=== PATIENT | female | born 1935 | race Hispanic/Latino ===

== ENCOUNTER 2019-11-29 18:56 | Inpatient (IN) | payer OTHER, MEDICARE ==
[~2019-11-29] VITALS: Ht 160 cm; Wt 50.2 kg
[2019-11-29] MEDS ORDERED: ACETAMINOPHEN 325 MG TAB ONE (19:49)
[2019-11-29] MEDS ORDERED: ONDANSETRON HCL 4 MG/2 ML VIAL ONE (19:49)
[2019-11-29] MEDS ORDERED: MORPHINE SULFATE 2 MG/ML 1ML SYG ONE (19:50)
[2019-11-29 19:52] LABS: BASOPHILS % (AUTO) 0.3 % (0.0-5.0); HEMATOCRIT 37.5 % (36-48); LYMPHOCYTES % (AUTO) 6.2 % (21.0-51.0); MEAN CORPUSCULAR HEMOGLOBIN 30.4 pg (27.0-33.0); MEAN CORPUSCULAR HGB CONC 35.5 g/dL (32.0-36.0); MEAN CORPUSCULAR VOLUME 85.8 fL (79-99); NEUTROPHILS % (AUTO) 80.2 % (40.0-77.0); PLATELET COUNT (AUTO) 312 K/uL (130-400); RED BLOOD CELL COUNT(AUTO) 4.37 MIL/uL (4.00-5.50); WHITE BLOOD COUNT (AUTO) 6.6 K/uL (4.8-10.8)
[2019-11-29 20:05] LABS: INR 1.02 (0.85-1.15); PARTIAL THROMBOPLASTIN TIME 31.2 SEC (26.3-35.5)
[2019-11-29 20:12] LABS: ALBUMIN 3.8 g/dL (3.5-5.0); BILIRUBIN,TOTAL 1.1 mg/dL (0.2-1.0); CREATININE 0.8 mg/dL (0.5-1.5); POTASSIUM 3.1 mmol/L (3.5-5.1); TOTAL PROTEIN, SERUM 7.3 g/dL (6.0-8.3)
[2019-11-29] MEDS ORDERED: IOHEXOL-350 75 ML VIAL IV ONE (21:07)
[2019-11-29 22:31] LABS: APPEARANCE,URINE Clear (CLEAR); BILIRUBIN,URINE Negative (NEGATIVE); COLOR,URINE Yellow (YELLOW); GLUCOSE, URINE (UA) Negative (NEGATIVE); KETONES,URINE 15 mg/dL (NEGATIVE); LEUKOCYTE ESTERASE ,URINE Negative (NEGATIVE); NITRATE,URINE Negative (NEGATIVE); OCCULT BLOOD,URINE Negative (NEGATIVE); PH,URINE 5.5 (5.0-8.0); PROTEIN,URINE Negative (NEGATIVE)
[2019-11-29] MEDS ORDERED: POTASSIUM BICARB/CIT AC 25 MEQ TABLET.EFF ONE (22:54)
[2019-11-30 03:45] VITALS: BP 131/55
[2019-11-30] MEDS ORDERED: PANT40TA54 PO (05:22)
[2019-11-30 06:32] LABS: HEMATOCRIT 36.2 % (36-48); MEAN CORPUSCULAR HEMOGLOBIN 30.6 pg (27.0-33.0); MEAN CORPUSCULAR HGB CONC 34.8 g/dL (32.0-36.0); MEAN CORPUSCULAR VOLUME 87.9 fL (79-99); RED BLOOD CELL COUNT(AUTO) 4.12 MIL/uL (4.00-5.50); RED CELL DISTRIBUTION WIDTH 12.2 % (11.0-15.5); WHITE BLOOD COUNT (AUTO) 6.2 K/uL (4.8-10.8)
[2019-11-30 06:50] LABS: ALBUMIN 3.3 g/dL (3.5-5.0); CREATININE 0.7 mg/dL (0.5-1.5); POTASSIUM 3.1 mmol/L (3.5-5.1); TOTAL PROTEIN, SERUM 6.7 g/dL (6.0-8.3)
[2019-11-30] MEDS ORDERED: HYDROMORPHONE HCL 0.5 MG/0.5 ML ML IVP PRN (08:00)
[2019-11-30] MEDS ORDERED: ONDANSETRON HCL 4 MG/2 ML VIAL IVP PRN (08:00)
[2019-11-30 08:34] VITALS: BP 152/66
[2019-11-30] MEDS: PANTOPRAZOLE 40 MG/VIAL IVP SCH (11:02)
[2019-11-30] MEDS: ENOXAPARIN SODIUM 40 MG/0.4 ML SYRINGE SQ SCH (11:03)
[2019-11-30 12:21] VITALS: BP 153/72
--- NOTE | 2019-11-30 16:15 | NUR ---
GAURANG NOTE/IA UNABLE TO SPEAK TO PATIENT IN ROOM, NEXT OF KIN CALLED, MARCELINO ARSHAD. PER SISTER IN LAW, PATIENT LIVES ALONE, IS INDEPENDENT WITH ADLS, NO DME IN USE, NO PROVIDER OR COMMUNITY RESOURCES IN USE, HAS USE OF [facility] ON [facility] AND FEELS SAFE FOR PATIENT TO EITHER RETURN HOME OR WITH HER ONCE STABLE. Addendum: 11/30/19 at 1740 by DILAN HOLLIDAY RN CM Amended: Links added.
[2019-11-30 16:37] VITALS: BP 145/72
[2019-11-30 20:47] VITALS: BP 153/86
[2019-11-30] MEDS: DEXTROSE 5 %-0.45 % NACL 1,000 ML IV SCH (21:50)
[2019-11-30] MEDS: POTASSIUM CHLORIDE 20MEQ/100ML 100 ML IV PRN ×2 (21:51→23:11)
[2019-11-30] MEDS: LIDOCAINE HCL-MPF 1% 2ML VIAL IV PRN (21:51)
[2019-12-01] VITALS (7 sets, daily range): BP systolic 132–157; BP diastolic 53–68
[2019-12-01] MEDS: DEXTROSE 5 %-0.45 % NACL 1,000 ML IV SCH ×3 (02:55→20:14)
[2019-12-01] MEDS ORDERED: BISACODYL 10 MG SUPP.RECT RC SCH (06:30)
[2019-12-01] MEDS: PANTOPRAZOLE 40 MG/VIAL IVP SCH (09:41)
[2019-12-01] MEDS: ENOXAPARIN SODIUM 40 MG/0.4 ML SYRINGE SQ SCH (09:42)
--- NOTE | 2019-12-01 18:16 | NUR ---
pt aox4. vss. npo status maintained. supossitory given, awaiting for pt to pass stool and gas. MD aware. pt maintained on ivf, seeing by PT. oob to commode with minimal assistance. denied pain. NGT to lcws [id number] cc brownish drainage.
[2019-12-02] MEDS: DEXTROSE 5 %-0.45 % NACL 1,000 ML IV SCH ×3 (03:00→19:15)
[2019-12-02 03:33] VITALS: BP 108/47
[2019-12-02] MEDS ORDERED: LACTULOSE 20 GM/30 ML UDCUP PO PRN (07:15)
[2019-12-02 08:30] VITALS: BP 133/55
[2019-12-02] MEDS: ENOXAPARIN SODIUM 40 MG/0.4 ML SYRINGE SQ SCH (08:35)
[2019-12-02] MEDS: PANTOPRAZOLE 40 MG/VIAL IVP SCH (09:00)
[2019-12-02] MEDS ORDERED: PANTOPRAZOLE SODIUM 40 MG TABLET.DR ONE (10:55)
[2019-12-02] MEDS ORDERED: SODIUM CHLORIDE 0.9% 500ML 500 ML IV ONE (11:27)
[2019-12-02] MEDS: POTASSIUM CHLORIDE 20MEQ/100ML 100 ML IV PRN ×2 (11:51→13:19)
[2019-12-02 12:20] VITALS: BP 178/61
[2019-12-02 16:38] VITALS: BP 106/54
--- NOTE | 2019-12-02 16:45 | NUR ---
Refusal Patient states that she does not want the NG tube and was not going to let me put it in, I explained to her the reason why the doctor ordered it to be put back in but she still said no, I asked her if she was refusing and she stated "yes I am refusing I dont want to be suffering all my life".
[2019-12-02 20:08] VITALS: BP 114/55
--- NOTE | 2019-12-02 21:30 | NUR ---
ngt spoke to family via phone, patient agreed for ngt , ngt size 16 inrtoduced via right nare, attempt x1 and successful, tolerated well, obtained 1500 cc of or brown foul smelling secretions, continue with ngt to low intermittent suction as ordered, npo, ivf infusing well
[2019-12-03 00:08] VITALS: BP 98/50
[2019-12-03 04:08] VITALS: BP 97/50
[2019-12-03] MEDS: DEXTROSE 5 %-0.45 % NACL 1,000 ML IV SCH ×4 (04:14→21:12)
[2019-12-03 07:51] VITALS: BP 104/52
[2019-12-03] MEDS: PANTOPRAZOLE 40 MG/VIAL IVP SCH (09:59)
[2019-12-03] MEDS: ENOXAPARIN SODIUM 40 MG/0.4 ML SYRINGE SQ SCH (09:59)
[2019-12-03] MEDS: CLINIMIX E 4.25%-5% SOLUTION 2,000 ML IV SCH (10:04)
[2019-12-03 11:59] VITALS: BP 120/50
[2019-12-03 15:27] VITALS: BP 120/50
--- NOTE | 2019-12-03 15:57 | NUR ---
IV IN R FOREARM INFILTRATED, IV DCD . 2 NEW IV PLACED IN L FOREARM, IVF INFUSING IN ONE AND PPN INFUSING IN THE IV IN L LOWER FOREARM. PT IS OCTAVIANO NGT WELL, LIGHT BROWN COLORED DRAINAGE NOTED IN SUCTION CANISTER, PT HAD NO C/O PAIN OR DISCOMFORT @ THIS TIME, PT WILL BE DCD HOME, ONCE MEDICALLY STABLE
[2019-12-03] MEDS: LIDOCAINE HCL-MPF 1% 2ML VIAL IV PRN (17:38)
[2019-12-03] MEDS: POTASSIUM CHLORIDE 20MEQ/100ML 100 ML IV PRN (17:41)
[2019-12-03 20:04] VITALS: BP 150/65
[2019-12-04 00:04] VITALS: BP 136/59
[2019-12-04 04:04] VITALS: BP 140/64
--- NOTE | 2019-12-04 05:36 | NUR ---
ASSESSMENT PT. IS ALERT AND ORIENTED TIMES 4. ONLY COMPLAINS OF PAIN WHEN YOU PRESS ON HER ABD. AT SHIFT CHANGE LAST NIGHT THERE WAS 300 OF BROWN LIQUID IN THE SUCTION CONTAINER WITH WALL SUCTION AT LIS. PATIENT WAS COMFORTABLE. THIS MORNING AT 0500 THERE IS STILL 300 IN THE SUCTION CANISTER AND THE PATIENT IS UNCOMFORTABLE AND WITH NOTICEABLE ABD. DISTENTION. CALLED DR. ANTUNEZ. HE ORDERED A FLUSH TO CHECK FOR PLACEMENT AND CT OF THE ABD/PELVIS WITH ORAL CONTRAST. AFTER FLUSHING THE NG TUBE WITH WATER AND PUSHING 50 MLS OF AIR NOISE COULD BE HEARD IN THE ABD WHEN THE AIR WENT IN. SOON THE SUCTION WAS BOLIVAR BACK UP LIGHT BROWN LIQUID BEGAN TO IMMEDIATELY ENTER THE NG TUBE AND GO INTO THE CANISTER. A TOTAL OF 200 MLS OF LIQUID WENT INTO THE SUCTION CANISTER. THERE IS NOW A TOTAL OF 500 MLS IN THE SUCTION CANISTER. pT. HAS PPN GOING AT 85 MLS/HR AND D5 1/2 NS AT 125. ORAL CONTRAST GIVEN AT 0600 AND SCHEDULED AT [address] AT 0800.
[2019-12-04] MEDS ORDERED: DIATR MEGLU/DIATRIZOATE SODIUM 30 ML BOTTLE ONE (05:37)
[2019-12-04 06:14] LABS: BASOPHILS % (AUTO) 0.4 % (0.0-5.0); EOSINOPHILS % (AUTO) 2.1 % (0.0-8.0); HEMATOCRIT 35.8 % (36-48); LYMPHOCYTES % (AUTO) 12.1 % (21.0-51.0); MEAN CORPUSCULAR HEMOGLOBIN 30.3 pg (27.0-33.0); MEAN CORPUSCULAR HGB CONC 33.8 g/dL (32.0-36.0); MEAN CORPUSCULAR VOLUME 89.7 fL (79-99); MONOCYTES % (AUTO) 9.8 % (3.0-13.0); PLATELET COUNT (AUTO) 308 K/uL (130-400); RED BLOOD CELL COUNT(AUTO) 3.99 MIL/uL (4.00-5.50); RED CELL DISTRIBUTION WIDTH 12.6 % (11.0-15.5)
[2019-12-04 06:53] LABS: CREATININE 0.6 mg/dL (0.5-1.5); POTASSIUM 3.8 mmol/L (3.5-5.1)
[2019-12-04 07:52] VITALS: BP 154/68
[2019-12-04] MEDS: PANTOPRAZOLE 40 MG/VIAL IVP SCH (09:29)
[2019-12-04] MEDS: ENOXAPARIN SODIUM 40 MG/0.4 ML SYRINGE SQ SCH (09:30)
[2019-12-04] MEDS: CLINIMIX E 4.25%-5% SOLUTION 2,000 ML IV SCH (10:00)
[2019-12-04 11:56] VITALS: BP 148/67
[2019-12-04] MEDS: DEXTROSE 5 %-0.45 % NACL 1,000 ML IV SCH ×2 (15:57→19:15)
[2019-12-04 16:16] VITALS: BP 147/72
[2019-12-04 20:12] VITALS: BP 144/68
[2019-12-05] VITALS (7 sets, daily range): BP systolic 136–152; BP diastolic 64–87
[2019-12-05] MEDS: DEXTROSE 5 %-0.45 % NACL 1,000 ML IV SCH ×3 (00:29→17:03)
[2019-12-05] MEDS: PANTOPRAZOLE 40 MG/VIAL IVP SCH (08:36)
[2019-12-05] MEDS: ENOXAPARIN SODIUM 40 MG/0.4 ML SYRINGE SQ SCH (08:36)
--- NOTE | 2019-12-05 09:42 | NUR ---
RD NOTIFICATION - PPN Recommend continue PPN Clinimix E 4.25/5% @ 85mls/hr (2040mls/87gm protein/694 kcal per day) Recommend Add 20% Intralipid MWF as medically feasible. Recommendations faxed to [phone] (ext [phone]), RN extension with [employer]. RD to follow up NUTRITION NOTE Pt admitted with SBO, NGT to suction. Previously tolerated Clear Liquids. Worsened status requiring NPO, PPN initiated 12/04/19. Pt is followed by Surgeon. NGT with large residual. GIR = 1.42. I/O 2310/4150. RD to continue to monitor. Please notify as additional nutrition concerns arise. Thank you. Addendum: 12/05/19 at [address] Amended: Links added.
--- NOTE | 2019-12-05 12:07 | NUR ---
1150 report called to Jany, tech will transfer patient júnior to room 419.
[2019-12-05] MEDS: CLINIMIX E 4.25%-5% SOLUTION 2,000 ML IV SCH (14:48)
[2019-12-06] VITALS (27 sets, daily range): BP systolic 92–147; BP diastolic 44–86
[2019-12-06] MEDS: DEXTROSE 5 %-0.45 % NACL 1,000 ML IV SCH ×3 (04:18→19:15)
--- NOTE | 2019-12-06 06:30 | NUR ---
MD ROSE REYES VISITED WITH PATIENT. POC DISCUSSED. ALL QUESTIONS ANSWERED. PATIENT REFUSING TO SIGN CONSENT FOR SURGERY AT THIS TIME. PENDING CT OF THE ABD RESULTS. MD AWARE. NO NEW ORDERS AT THIS TIME. CALL LIGHT WITHIN REACH. WILL CONTINUE TO BE OBSERVED. Addendum: 12/06/19 at 0745 by BENJAMIN HOLLIDAY RN RN Amended: Links added.
[2019-12-06] MEDS ORDERED: DIATR MEGLU/DIATRIZOATE SODIUM 30 ML BOTTLE ONE (07:59)
[2019-12-06] MEDS: ENOXAPARIN SODIUM 40 MG/0.4 ML SYRINGE SQ SCH (09:00)
[2019-12-06] MEDS: CLINIMIX E 4.25%-5% SOLUTION 2,000 ML IV SCH (09:44)
[2019-12-06] MEDS: PANTOPRAZOLE 40 MG/VIAL IVP SCH (09:46)
[2019-12-06] MEDS ORDERED: FAT EMULSIONS 20% 250ML 250 ML IV SCH (10:00)
--- NOTE | 2019-12-06 10:49 | NUR ---
RD UPDATE PPN recommendations received and initiated 12/06/19. RD to continue to monitor and follow up.
--- NOTE | 2019-12-06 12:14 | NUR ---
CT PT TSF BY BED
--- NOTE | 2019-12-06 12:45 | NUR ---
BACK FROM CT WILL CONTINUE TO MONITOR
--- NOTE | 2019-12-06 16:45 | NUR ---
OR PT WENT TO OR FOR SMALL BOWEL OBSTRUCTION PROCEDURE.
[2019-12-06] MEDS ORDERED: CEFAZOLIN SODIUM 1 GM VIAL ONE (16:48)
[2019-12-06] MEDS ORDERED: LIDOCAINE PF 2% 5ML ABBOJECT ONE (16:49)
[2019-12-06] MEDS ORDERED: SUCCINYLCHOLINE CHLORIDE 20 MG/ML 10 ML VIAL ONE (16:49)
[2019-12-06] MEDS ORDERED: ROCURONIUM 10MG/1ML SYR 10 MG/ML ML ONE (16:50)
[2019-12-06] MEDS ORDERED: FENTANYL CITRATE PF 50 MCG/1 ML 2ML VIAL ONE (16:50)
[2019-12-06] MEDS ORDERED: PROPOFOL 10 MG/ML 20ML VIAL IV ONE (16:50)
[2019-12-06] MEDS ORDERED: EPHEDRINE SULFATE 50 MG/ML AMPULE ONE (17:12)
[2019-12-06] MEDS ORDERED: PHENYLEPHRINE HCL 10 MG/ML 1ML VIAL IV ONE (17:16)
[2019-12-06] MEDS ORDERED: NEOSTIGMINE 5MG/5ML SYR IV ONE (17:49)
[2019-12-06] MEDS ORDERED: GLYCOPYRROLATE 1 MG/5 ML SYRINGE ONE (17:49)
[2019-12-06] MEDS ORDERED: ESMOLOL HCL 10 MG/ML 10 ML VIAL ONE (17:52)
[2019-12-06] MEDS ORDERED: MEPERIDINE-PF 25 MG/ML SYG ONE (18:02)
[2019-12-06] MEDS ORDERED: ONDANSETRON HCL 4 MG/2 ML VIAL ONE (18:02)
--- NOTE | 2019-12-06 19:44 | NUR ---
POST-OP Pt came back post-op accompanied per Kamaljit RN,pt aao x 3,post op instructions given,cough and deep breathe,connected to scd's.Sister Nasrin updated on phone.
[2019-12-06] MEDS ORDERED: ACETAMINOPHEN 325 MG TAB PO PRN (21:30)
[2019-12-06] MEDS ORDERED: TRAMADOL HCL 50 MG TABLET PO PRN ×2 (21:30)
[2019-12-06] MEDS ORDERED: CEFAZOLIN SODIUM 1 GM VIAL IVP SCH (21:30)
[2019-12-06] MEDS: LACTATED RINGERS 1000ML 1,000 ML IV SCH (21:53)
[2019-12-07] VITALS (7 sets, daily range): BP systolic 90–112; BP diastolic 45–67
--- NOTE | 2019-12-07 03:42 | NUR ---
STATUS Pt resting quietly,respirations unlabored.Abdomen sof,hypoactive bowel sounds.Abd dressing dry and intact,abd binder on.Repositioned in bed,encourage cough and deep breathing.
[2019-12-07] MEDS: LACTATED RINGERS 1000ML 1,000 ML IV SCH ×3 (05:13→21:51)
--- NOTE | 2019-12-07 06:37 | NUR ---
GEMA WAGONER Explained to pt,gema cath dcd,balloon deflated.Laura well. Addendum: 12/07/19 at 0639 by KIN GUEVARA RN RN Amended: Links added.
[2019-12-07] MEDS: DOCUSATE SODIUM 100 MG CAP PO SCH ×2 (08:44→21:51)
[2019-12-07] MEDS: PANTOPRAZOLE 40 MG/VIAL IVP SCH (08:44)
[2019-12-07] MEDS: ENOXAPARIN SODIUM 40 MG/0.4 ML SYRINGE SQ SCH (08:44)
--- NOTE | 2019-12-07 15:59 | NUR ---
RD UPDATE Pt is s/p Ex lap. PPN discontinued. Diet advanced to clear liquid diet order. RD to continue to monitor for diet advancement to GI Soft [place] diet order. Please notify as additional nutrition concerns arise. Thank you.
[2019-12-07] MEDS: BENZOCAINE/MENTH/CETYLPYRD CL 1 EACH LOZENGE MM PRN (17:01)
--- NOTE | 2019-12-07 20:00 | NUR ---
AD JONAH Pt ambulated in the hallway accompanied per staffhermelinda well.States she has not pass gas yet.
--- NOTE | 2019-12-08 01:00 | NUR ---
BATHROOM Pt assisted to bathroom per staff.States she's been urinating well since ribeiro cath was dcd in am.
--- NOTE | 2019-12-08 02:50 | NUR ---
SLEEP Pt sleeping well.No distress noted.
[2019-12-08] MEDS: BENZOCAINE/MENTH/CETYLPYRD CL 1 EACH LOZENGE MM PRN ×2 (03:03→09:48)
--- NOTE | 2019-12-08 03:05 | NUR ---
SORE THROAT Pt c/o of sore throat,medicated wit Cepacol.
[2019-12-08 03:45] VITALS: BP 113/56
[2019-12-08] MEDS: LACTATED RINGERS 1000ML 1,000 ML IV SCH (05:11)
[2019-12-08 06:35] LABS: HEMATOCRIT 33.8 % (36-48); MEAN CORPUSCULAR HEMOGLOBIN 30.6 pg (27.0-33.0); MEAN CORPUSCULAR HGB CONC 33.4 g/dL (32.0-36.0); MEAN CORPUSCULAR VOLUME 91.6 fL (79-99); PLATELET COUNT (AUTO) 217 K/uL (130-400); RED BLOOD CELL COUNT(AUTO) 3.69 MIL/uL (4.00-5.50); RED CELL DISTRIBUTION WIDTH 12.9 % (11.0-15.5); WHITE BLOOD COUNT (AUTO) 7.3 K/uL (4.8-10.8)
[2019-12-08 06:41] LABS: CREATININE 0.5 mg/dL (0.5-1.5); POTASSIUM 4.7 mmol/L (3.5-5.1)
[2019-12-08 07:15] LABS: EOSINOPHILS % (MANUAL) 5 % (1-6); LYMPHOCYTES % (MANUAL) 8 % (22-44); MAN.DIFF COMMENT-IMPRESSION MANUAL DIFFERENTIAL; MONOCYTES % (MANUAL) 6 % (2-9); PLATELET MORPHOLOGY COMMENT ADEQUATE; SEGMENTED NEUTROPHILS % 81 % (40-70)
[2019-12-08 08:00] VITALS: BP 165/75
[2019-12-08] MEDS: DOCUSATE SODIUM 100 MG CAP PO SCH ×2 (09:44→20:50)
[2019-12-08] MEDS: PANTOPRAZOLE 40 MG/VIAL IVP SCH (09:44)
[2019-12-08] MEDS: ENOXAPARIN SODIUM 40 MG/0.4 ML SYRINGE SQ SCH (09:48)
[2019-12-08 12:00] VITALS: BP 135/71
--- NOTE | 2019-12-08 13:39 | NUR ---
C consult Patient assessed as ordered. No open ulcer identified. Blanchable redness present to sacral and coccyx areas. Allevyn life foam in place. [facility] recommendations submitted. Teaching done with patient re: repositioning/turning every 2 hours. Patient verbalized understanding.
[2019-12-08 16:00] VITALS: BP 121/52
[2019-12-08 20:00] VITALS: BP 118/60
[2019-12-09] VITALS: BP 131/66
[2019-12-09 04:00] VITALS: BP 143/66
[2019-12-09] MEDS ORDERED: TRAM50TA4 PO (06:34)
--- NOTE | 2019-12-09 06:42 | NUR ---
DISCHARGE ORDER RECEIVED ORDER TO D/C PATIENT TODAY. PATIENT STATED HER SISTER WILL BE ABLE TO PICK HER UP AFTER 0900.
[2019-12-09 08:00] VITALS: BP 157/75
[2019-12-09] MEDS: PANTOPRAZOLE 40 MG/VIAL IVP SCH (08:30)
[2019-12-09] MEDS: DOCUSATE SODIUM 100 MG CAP PO SCH (08:30)
[2019-12-09] MEDS: ENOXAPARIN SODIUM 40 MG/0.4 ML SYRINGE SQ SCH (08:31)
--- NOTE | 2019-12-09 09:53 | NUR ---
INSTRUCTIONS DISCHARGE INSTRUCTIONS GIVEN TO PATIENT USING TEACH BACK. NEW PRESCRIPTIONS PLACED IN DISCHARGE PACKET ALONG WITH ALL PRINTED INFORMATION AND MD INSTRUCTIONS. IV HAD BEEN REMOVED LAST NIGHT WHEN SHE WAS SUPPOSED TO GO HOME. SHE HAS NO QUESTIONS OR CONCERNS AT THIS TIME. PENDING RIDE HOME.
== END 2019-12-09 11:35 | disposition home or self-care (01) | DRG 336 ==
LOC: EDH 18:56 → OBSVTOIN 23:01 → EDHIP 23:01 → 4DH 11-30 03:30 → 4BH 12-02 09:28 → 4CH 12-05 12:33 → 3CH 12-05 21:50
PROVIDERS: ADMIT Internal Medicine; ATTEND Internal Medicine
PROC: 0D9670Z Drainage of Stomach with Drainage Device, Via Natural or Artificial Opening (ICD-10-PCS; 2019-11-30)
PROC: 0DN80ZZ Release Small Intestine, Open Approach (ICD-10-PCS; principal; 2019-12-06 17:11)
DX: K56.50 Intestinal adhesions [bands], unspecified as to partial versus complete obstruction (principal); E87.1 Hypo-osmolality and hyponatremia; E87.6 Hypokalemia; I10 Essential (primary) hypertension; E86.0 Dehydration; M15.9 Polyosteoarthritis, unspecified; Z03.818 Encounter for observation for suspected exposure to other biological agents ruled out
CPT/HCPCS: 36415; 71045; 74176; 74177; 80048; 80053; 81003; 82550; 82948; 83605; 83690; 84132; 84484; 85025; 85027; 85610; 85730; 87040; 87426; 93005; 97039; C9113; G0378; J0330; J0690; J1650; J2001; J2175; J2370; J2405; J2704; J2710; J3010; J3480; J3490; J7030; J7040; J7042; J7120; Q9963; Q9967; U0003

== ENCOUNTER 2024-03-03 16:52 | Emergency (ER) | payer OTHER, MEDICARE ==
[~2024-03-03] VITALS: Ht 160 cm; Wt 65.8 kg
[~2024-03-03 16:52] MED LIST: PANT40TA54 PO; TRAM50TA4 PO
[2024-03-03] MEDS: 0.9%NACL 1000ML 1,000 ML IV ONE (17:26)
[2024-03-03 17:42] LABS: BASOPHILS # (AUTO) 0.04 K/uL (0.00-0.20); BASOPHILS % (AUTO) 0.6 % (0.0-5.0); EOSINOPHILS % (AUTO) 1.5 % (0.0-8.0); HEMATOCRIT 35.3 % (36-48); IMMATURE GRANULOCYTE ABSOLUTE 0.02 K/uL (0-1); LYMPHOCYTES # (AUTO) 1.4 K/uL (1.0-4.8); LYMPHOCYTES % (AUTO) 20.4 % (21.0-51.0); MEAN CORPUSCULAR HEMOGLOBIN 30.3 pg (27.0-33.0); MEAN CORPUSCULAR HGB CONC 33.1 g/dL (32.0-36.0); MEAN CORPUSCULAR VOLUME 91.5 fL (79-99); MONOCYTES # (AUTO) 0.4 K/uL (0.1-1.0); MONOCYTES % (AUTO) 6.3 % (3.0-13.0); NEUTROPHILS # (AUTO) 4.8 K/uL (1.8-7.7); NEUTROPHILS % (AUTO) 70.9 % (40.0-77.0); PLATELET COUNT (AUTO) 282 K/uL (130-400); RED BLOOD CELL COUNT(AUTO) 3.86 MIL/uL (4.00-5.50); RED CELL DISTRIBUTION WIDTH 12.8 % (11.0-15.5); WHITE BLOOD COUNT (AUTO) 6.8 K/uL (4.8-10.8)
[2024-03-03 18:09] LABS: CARBON DIOXIDE 29 mmol/L (21-32); CHLORIDE 100 mmol/L (101-111); CREATININE 0.7 mg/dL (0.5-1.0); GLOMERULAR FILTR. RATE CALC 83 mL/min (>90); GLUCOSE,RANDOM 104 mg/dL (70-105); POTASSIUM 4.5 mmol/L (3.5-5.1); SODIUM SERUM 136 mmol/L (136-145); UREA NITROGEN, BLOOD 16 mg/dL (7-18)
[2024-03-03 18:14] LABS: ALANINE AMINOTRANSFERASE 16 U/L (12-78); ALBUMIN 3.5 g/dL (3.5-5.0); ASPARTATE AMINOTRANSFERASE 13 U/L (10-37); BILIRUBIN,DIRECT < 0.1 mg/dL (0.0-0.3); BILIRUBIN,TOTAL 0.3 mg/dL (0.2-1.0); TOTAL PROTEIN, SERUM 6.9 g/dL (6.0-8.3)
--- NOTE | 2024-03-03 18:21 | HMCIMG ---
CT ABDOMEN/PELVIS W/O CONTRAST HISTORY: Constipation versus obstruction COMPARISON: 12/06/2019 TECHNIQUE: Multiple sequential axial images of the abdomen and pelvis were obtained from the dome of the diaphragm through symphysis pubis. Patient was not given contrast through intravenous route. Oral contrast was not given. FINDINGS: No pleural effusion is seen bilaterally. There is no evidence of parenchymal disease or pulmonary nodule of the visualized lower lungs. Degenerative changes of the thoracolumbar spine are present. The heart is not enlarged. Coronary arterial calcifications are seen. There are compression fractures involving L3, L4 and L5 levels with 80%, 20% and 30% loss of height respectively. There is posterior subluxation of L2 over L3. There is grade 1 anterolisthesis of L4-L5 level. Central canal narrowings are seen in the mid and lower lumbar spine level. There is colon wall thickening with dilatation. Fecal material is seen in the colon suspicious for fecal impaction. Liver measures 16 cm. There is scoliosis. The liver, spleen, adrenal glands and pancreas are unremarkable. There is left renal cyst measuring 4 cm. There is right renal cyst measuring 6.4 cm. There is no evidence of hydronephrosis bilaterally. No evidence of renal stone is seen. Fecal material is seen in the colon. There is diverticulosis. There are normal size retroperitoneal and mesenteric lymph nodes. No ascites is seen. Atherosclerotic changes are present. Pelvic sidewalls are symmetric bilaterally. 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 Bladder is well distended without wall thickening. IMPRESSION: 1. Colon wall thickening with dilatation. Fecal material in the colon. Findings are suggestive of fecal impaction. Clinical correlation is recommended. There is diverticulosis. CT was performed with one or more following dose reduction techniques: automated exposure control, adjustment of the mA and kv according to patient's size, or use of a iterative reconstruction technique.
--- NOTE | 2024-03-03 18:28 | ERN ---
General Chief Complaint: Constipation Stated Complaint: CONSTIPATION Time Seen by MD: 16:56 Time Seen by Midlevel: 16:56 Source: patient History of Present Illness Initial Comments Patient is an 80-year-old female coming in via EMS [facility] for evaluation of constipation. Patient states she suffers from constipation and normally has to take lactulose. She has been unable to defecate for the last couple of days. On arrival she specifically denies any abdominal pain but does report some rectal discomfort. She denies any fever, chills, or any other symptoms at this time. Allergies: Coded Allergies: No Known Allergies (Unverified Allergy, Unknown, 11/30/19) Home Meds Active Scripts Na Phos,M-B/Na Phos,Di-Ba (Enema Bijvx-At-Wpg) 19 Gram-7 Gram/118 Ml Enema, 118 ML [place] DAILY for 3 Days, #354 ML 0 Refills DIRECTED Prov:REX LA 03/03/24 Docusate Sodium (Colace) 100 Mg Capsule, 1 CAP PO BID for 30 Days, #60 CAP 0 Refills Prov:REX LA 03/03/24 Polyethylene Glycol 3350 (Miralax) 17 Gram Powd.pack, 17 GM PO DAILY for constipation, #20 PACKET 0 Refills Prov:REX LA 03/03/24 Reported Medications Tramadol Hcl (Tramadol HCl) 50 Mg Tablet, 50 MG PO Q6D PRN for PAIN LEVEL 6 TO 10, TAB 12/09/19 Pantoprazole Sodium (Pantoprazole Sodium) 40 Mg Tablet.dr, 40 MG PO AM 11/30/19 Past Medical History Past Medical History: Diabetes-Type II, High Cholesterol, Hypertension Past Surgical History: Other Surgical History Other: D&C, ABD SX. ROS Dictation CONSTITUTIONAL: Negative except for HPI HEAD/FACE: Negative except for HPI EENT: Negative except for HPI RESPIRATORY: Negative except for HPI GASTROINTESTINAL/ABDOMINAL: Negative except for HPI GENITOURINARY: Negative except for HPI MUSCULOSKELETAL: Negative except for HPI INTEGUMENTARY: Negative except for HPI NEUROLOGICAL/PSYCH: Negative except for HPI HEMATOLOGIC/LYMPHATIC: Negative except for HPI All Systems Negative, Except as noted above. 13 point review of systems assessed and all negative except for above. Physical Exam Physical Exam Dictation Vital Signs reviewed General Appearance: Alert, oriented x 3, no acute distress, well developed, nourished. Head and Face: non-traumatic. Eyes: PERRL, pink conjunctivas, eyelid no trauma, anterior chamber with arcus senilis. Ears: Pinnas intact and no signs of trauma or erythema ear canals clear and no discharge TM no erythema Nose: No discharge, no bleeding. Oropharynx: Mouth normal, tongue pink, pharynx clear,no erythema, tonsils no exudates, no abscesses noted, mucous membrane moist Neck: Supple, non-tender, no thyromegaly, no masses, no JVD, no bruits Breast:Deferred Chest:No tenderness, no crepitus, no paradoxical movement, no retractions Lungs:Clear, well-ventilated, symmetric, no rales, no wheezing, no rhonchi, no stridor, good breath sounds bilaterally Heart: Regular rate, regular rhythm, no murmur, no gallops Vascular: no peripheral edema, Abdomen: Soft, positive bowel sounds, nondistended, no guarding, nontender, no rebound, no masses no hepatomegaly, no splenomegaly, no Parker's sign, no hernias. Rectal: Deferred Genital: Deferred Neurological: Normal speech, motor function intact, sensory function intact Musculoskeletal: Neck nontender, full range of motion, back nontender, full range of motion, Extremities: nontender, full range of motion Skin: Color pink, dry, no turgor, no rash, no lacerations, no abrasions, no contusions. Lymphatic: Deferred Results Laboratory and Microbiology Lab and Micro Result Laboratory Tests Test 03/03/24 17:31 White Blood Count 6.8 K/uL (4.8-10.8) Red Blood Count 3.86 MIL/uL (4.00-5.50) L Hemoglobin 11.7 g/dL (12.0-16.0) L Hematocrit 35.3 % (36-48) L Mean Corpuscular Volume 91.5 fL (79-99) Mean Corpuscular Hemoglobin 30.3 pg (27.0-33.0) Mean Corpuscular Hemoglobin Concent 33.1 g/dL (32.0-36.0) Red Cell Distribution Width 12.8 % (11.0-15.5) Platelet Count 282 K/uL (130-400) Mean Platelet Volume 9.6 fL (7.5-10.5) Immature Granulocyte % (Auto) 0.3 % (0-1) Neutrophils (%) (Auto) 70.9 % (40.0-77.0) Lymphocytes (%) (Auto) 20.4 % (21.0-51.0) L Monocytes (%) (Auto) 6.3 % (3.0-13.0) Eosinophils (%) (Auto) 1.5 % (0.0-8.0) Basophils (%) (Auto) 0.6 % (0.0-5.0) Neutrophils # (Auto) 4.8 K/uL (1.8-7.7) Lymphocytes # (Auto) 1.4 K/uL (1.0-4.8) Monocytes # (Auto) 0.4 K/uL (0.1-1.0) Eosinophils # (Auto) 0.10 K/uL (0.00-0.70) Basophils # (Auto) 0.04 K/uL (0.00-0.20) Absolute Immature Granulocyte (auto 0.02 K/uL (0-1) Nucleated Red Blood Cells 0.0 % (0.0-0.19) Sodium Level 136 mmol/L (136-145) Potassium Level 4.5 mmol/L (3.5-5.1) Chloride Level 100 mmol/L (101-111) L Carbon Dioxide Level 29 mmol/L (21-32) Blood Urea Nitrogen 16 mg/dL (7-18) Creatinine 0.7 mg/dL (0.5-1.0) Glomerular Filtration Rate Calc 83 mL/min (>90) Random Glucose 104 mg/dL (70-105) Total Calcium 9.0 mg/dL (8.5-10.1) Total Bilirubin 0.3 mg/dL (0.2-1.0) Direct Bilirubin < 0.1 mg/dL (0.0-0.3) Aspartate Amino Transf (AST/SGOT) 13 U/L (10-37) Alanine Aminotransferase (ALT/SGPT) 16 U/L (12-78) Alkaline Phosphatase 96 U/L (50-136) Total Protein 6.9 g/dL (6.0-8.3) Albumin 3.5 g/dL (3.5-5.0) Lipase 34 U/L (16-77) Labs Reviewed?: Yes MDM MDM: Patient is an 80-year-old female coming in via EMS [facility] a [facility] for evaluation of constipation. Patient states she suffers from constipation and normally has to take lactulose. She has been unable to defecate for the last couple of days. On arrival she specifically denies any abdominal pain but does report some rectal discomfort. She denies any fever, chills, or any other symptoms at this time. On physical examination patient is in no acute distress. Her vital signs are stable. She is afebrile and nontoxic appearing. Her abdominal examination is benign. A CT scan was obtained to rule out obstruction. Her blood work is unremarkable. Her CT scan shows large amount of stool burden. Patient was given MiraLax and lactulose in the emergency department and a enema was performed. Patient was offered and digital disimpaction but she kindly refused. Fleet enema was performed and patient was able to have a bowel movement. Patient will be discharged back to her [facility] with MiraLax, Colace, and enemas that can be performed with while at the penitentiary. She was advised to return to the ER for any new or worsening symptoms. Patient is stable for discharge Differential diagnosis: Constipation, small-bowel obstruction, enteritis There are no social concerns with this patient. Prescription drug management Prescriptions will include: Colace, MiraLax, Fleet enema Medical management and examination interpretation discussions were had by me with other qualified healthcare professionals as indicated for the patient's care. ED Course Orders Procedure Category Date Status Time 0.9%Nacl 1000ml (Ns PHA 03/03/24 Complete 1000ml) 17:00 Cbc With Differential LAB 03/03/24 Complete 16:57 Lipase LAB 03/03/24 Complete 16:57 Basic Metabolic Panel LAB 03/03/24 Complete 16:57 Hepatic Function Panel LAB 03/03/24 Complete 16:57 Ct Abdomen/Pelvis W/O CT 03/03/24 Resulted Contrast 16:57 *Nursing CPOE 03/03/24 Transmitted Communication: 18:23 Lactulose 20 Gm/30 Ml PHA 03/03/24 Complete Udcup (Constulose 18:30 Polyethylene Glycol PHA 03/03/24 Complete 3350 (Miralax 3350 1 18:30 Current Medications Medications (Trade) Dose Ordered Sig/Kinga Route PRN Reason Start Time Stop Time Status Last Admin Dose Admin Lactulose (Constulose 20gm/ 30ml Udcup) 20 gm ONCE ONCE PO 03/03/24 18:30 03/03/24 18:36 DC 03/03/24 19:04 Polyethylene Glycol (MIRalax 3350 17 GM POWD.PACK) 17 gm ONCE ONCE PO 03/03/24 18:30 03/03/24 18:36 DC 03/03/24 19:04 Sodium Chloride 1,000 ml @ 0 mls/hr ONCE ONCE IV 03/03/24 17:00 03/03/24 17:01 DC 03/03/24 17:26 Vital Signs Date Time Temp Pulse Resp B/P (MAP) Pulse Ox O2 Delivery O2 Flow Rate FiO2 03/03/24 17:31 63 20 157/79 96 Room Air* 0 21 03/03/24 16:54 98.1 69 18 171/72 97 Room Air 0 DX & DISP Disposition: Discharge Departure Impression: Primary Impression: Constipation Condition: Stable Scripts Na Phos,M-B/Na Phos,Di-Ba (Enema Wzchm-Og-Ney) 19 Gram-7 Gram/118 Ml Enema 118 ML W[place] DAILY for 3 Days, #354 ML 0 Refills DIRECTED Prov: REX LA 03/03/24 Docusate Sodium (Colace) 100 Mg Capsule 1 CAP PO BID for 30 Days, #60 CAP 0 Refills Prov: REX LA 03/03/24 Polyethylene Glycol 3350 (Miralax) 17 Gram Powd.pack 17 GM PO DAILY for constipation, #20 PACKET 0 Refills Prov: REX LA 03/03/24 Additional Instructions: Your blood work today is unremarkable. Your CT scan shows a significant amount of constipation. Have given you a prescription for Colace, MiraLax, and enemas that can be performed at home. If you develop any new or worsening symptoms please report to the ER for further evaluation. Referrals: DONTAE RAMSEY MD (PCP) I have reviewed the case, and I agree with, Diagnosis and Plan I performed the substantive portion of the visit. I have reviewed and personally made and approve the management plan that is documented in the note by myself or the ERUM. I acknowledge for responsibility for the patient's management plan. REX LA Mar 03, 2024 18:27
[2024-03-03] MEDS ORDERED: POLY17PO4 PO (18:55)
[2024-03-03] MEDS ORDERED: NA P133E36 PR (18:55)
[2024-03-03] MEDS ORDERED: DOCU-116 PO (18:55)
[2024-03-03] MEDS: LACTULOSE 20 GM/30 ML UDCUP PO ONE (19:04)
[2024-03-03] MEDS: polyETHYLene GLYCol 3350 17 GM POWD.PACK PO ONE (19:04)
[2024-03-03 21:39] VITALS: BP 151/68; PULSE 63; RESP 20; TEMP 98.1; O2SAT 97
== END 2024-03-03 22:48 | disposition home or self-care (01) ==
LOC: EDH 16:52
DX: K59.00 Constipation, unspecified (principal); E11.9 Type 2 diabetes mellitus without complications; E78.00 Pure hypercholesterolemia, unspecified; I10 Essential (primary) hypertension; Z79.899 Other long term (current) drug therapy; Z98.890 Other specified postprocedural states
CPT/HCPCS: 99284; 74176; 96360; 80076; 80048; 83690; 85025; 36415; J7030